=== PATIENT | male | born 1975 | race Caucasian/White ===

== ENCOUNTER 2022-09-15 04:24 | Emergency (ER) | payer BC, SELFPAY ==
[2022-09-15 04:33] VITALS: BP 166/91; PULSE 82; RESP 18; TEMP 37.1; O2SAT 99
--- NOTE | 2022-09-15 05:04 | ED_ITS ---
HPI - General Adult General Chief complaint: Anxiety Stated complaint: panic attack, concern about having a heart attack Time Seen by Provider: 09/15/22 04:26 Source: patient Mode of arrival: ambulatory Limitations: no limitations History of Present Illness HPI narrative: 47-year-old male presents with anxiety. He reports that he started having a panic attack about an hour and half prior to arrival felt like his heart was racing in his hands were shaking. There were no neurological changes, no loss of consciousness. He had a similar episode yesterday and was able to breathe through it make it go away. He reports an ongoing history of anxiety which he is never addressed with his primary care provider. He checked his blood pressure on his mother's cuff and it was 140 causing him even more concern and h e thought he should come to the emergency department in the middle of the night. He is not currently in counseling. He denies any alcohol or any other illicit drugs. Denies excessive stimulant use. No personal history of cardiac disease. Remote family history of heart disease noted. He agrees that this feels like his symptoms are from anxiety but he could not make it stop in did not know what to do. Denies suicidal or homicidal thoughts. No recent surgeries. No acute illness. No fever. No chest trauma. No history of arrhythmia. He states that his past medical history is benign, no major long-term health problems. Primary care provider is Dr. Ford at [facility]. He denies long-term medications, denies allergies. Socially denies any illicit substance or tobacco use. ROS notable for the generalized and mental health symptoms as above as well as cardiac. Denies otherwise times 12 systems. Related Data Home Medications Medication Instructions Recorded Confirmed No Known Home Medications 09/15/22 09/15/22 Allergies Allergy/AdvReac Type Severity Reaction Status Date / Time No Known Drug Allergies Allergy Verified 09/15/22 04:32 [facility] Social History Smoking Status: Never smoker Do you use any of these nicotine containing products: None Second hand tobacco smoke exposure: No How often do you have a drink containing alcohol: never AUDIT-C Alcohol total score: 0 Non-prescribed substance use: denies use Exam Const: Vital Signs, click to edit/add: Vital Signs - 24 hr 09/15/22 04:33 Temperature 98.7 F Pulse Rate [Right Pulse Oximeter] 82 Respiratory Rate 18 Blood Pressure [Ri ght Upper Arm] 166/91 H Pulse Oximetry 99 Oxygen Delivery Me thod Room Air Documenting provider has reviewed patient's vital signs: yes General appearance: well kempt Other: Anxious with poor insight. Thought process logical HENMT: Common normals: normocephalic Head and scalp: normocephalic Mouth: oral and palatal mucosa normal Throat: posterior oropharynx normal Eye: Common normals: conjunctivae normal General eye: normal appearance of both eyes Conjunctiva: conjunctiva(e) normal Neck & C-Spine: Common normals: full ROM and no lymphadenopathy Resp: Common normals: normal respiratory effort, no use of accessory muscles and clear to auscultation bilaterally Effort & inspection: able to speak in complete sentences Auscultation: clear to auscultation bilaterally Cardio: Common normals: regular rate, regular rhythm, S1 normal heart sound, S2 normal heart sound and no murmurs Rate: regular rate Rhythm: regular rhythm Heart sounds: S1 normal and S2 normal GI: Common normals: Normal to inspection, nondistended, normoactive bowel sounds present and no masses Extremity: Common normals: normal capillary refill and no pedal edema Neuro: Speech: speech normal Motor exam: no tremor noted and no movement abnormalities noted Psych: Common normals: thought process normal Appearance: well kempt Mood and affect: anxious Thought process: normal thought process Insight: fair Judgement: fair Skin: Common normals: no rashes or lesions noted Narrative: No signs of injury or trauma General skin exam: no rashes or lesions noted Course Vital Signs Vital signs: Initial Vital Signs Respiratory Effort Normal 09/15/22 04:32 Respiratory Depth Normal 09/15/22 04:32 Respiratory Pattern Normal 09/15/22 04:32 Vital Signs Temperature 98.7 F 09/15/22 04:33 Pulse Rate 82 09/15/22 04:33 Respiratory Rate 18 09/15/22 04:33 Blood Pressure 166/91 H 09/15/22 04:33 Pulse Oximetry 99 09/15/22 04:33 Oxygen Delivery Method Room Air 09/15/22 04:33 Temperature 98.7 F 09/15/22 04:33 Pulse Rate 82 09/15/22 04:33 Respiratory Rate 18 09/15/22 04:33 Blood Pressure 166/91 H 09/15/22 04:33 Pulse Oximetry 99 09/15/22 04:33 Oxygen Delivery Method Room Air 09/15/22 04:33 Medical Decision Making MDM Narrative Medical decision making narrative: Patient seeming to be having mild anxiety. His reassured on his vital signs. I recommended an EKG and a point of care troponin. Offered Vistaril for anxiety which he declined to the nurse. EKG and troponin are reassuring. Counseled patient that he would benefit significantly from discussing his anxiety with his primary care provider and forming a long-term plan. Reviewed the signs and symptoms that would warrant ED presentation. He verbalizes understanding and agreement Lab Data Lab results reviewed: Yes I reviewed the patient's lab results Lab results narrative: Point of care troponin 0.00 as expected ECG Data Attestation: I personally reviewed and interpreted this ECG as follows: Prior ECG tracings: not available for review Interpretation: Normal sinus rhythm, rate 80. Normal axis, good R-wave progression. Borderline for LVH criteria but no signs of ischemia Discharge Plan Discharge Clinical Impression: Panic disorder Patient Disposition: Home w/ Parent or Adult Condition: Stable Instructions: Panic Attack (ED) Additional Instructions: As we discussed, there are no signs of heart attack or other dangerous abnormality today. Panic attacks are very common and those that suffer from them are likely to get them again. You need a long-term plan and this needs to be discussed with her primary care provider. You declined Vistaril, a common medication that we used to treat mild anxiety. That medication has the benefit of not being addictive. You can discuss the potential for having this on hand for panic attacks with your primary care provider if you choose to explore this again. As we discussed, your blood pressure today is not of significant concern. You should continue to have yearly checks with her primary care provider and if your blood pressure is elevated on a normal day, the 2 of you can discuss treatment. Continue to work on learning breathing exercises and other ways to diffuse your anxiety. I would strongly recommend counseling as well. Referral for this can be placed through your primary care provider. Activity Level: No Restrictions Discharge Diet: Regular Prescriptions: No Action No Known Home Medications Follow Up/Referrals: Abhijeet Bloom MD [Primary Care Provider] - Stand Alone Forms: [employer] Info Instructions
[2022-09-15 05:32] VITALS: BP 158/94; PULSE 88; RESP 18; O2SAT 99
== END 2022-09-15 05:44 | disposition home or self-care (01) ==
LOC: ED 05:12
PROVIDERS: Emergency Provider Family Medicine; PCP Family Medicine
DX: F40.01 Agoraphobia with panic disorder (principal)
CPT/HCPCS: 84484; 93005; 99283; 99284